=== PATIENT | female | born 1945 | race Caucasian/White ===

== ENCOUNTER → 2017-07-24 15:51 | Outpatient (REF) | payer MEDICARE, BC, SELFPAY | LOC: LAB 15:51 | PROVIDERS: Visit Provider Obstetrics & Gynecology | DX: N39.0 Urinary tract infection, site not specified (principal) | CPT/HCPCS: 87086 ==

== ENCOUNTER → 2017-08-07 13:25 | Outpatient (CLI) | payer MEDICARE, MEDICAID, SELFPAY ==
--- NOTE | 2017-08-07 13:31 | CT_ITS ---
CT abdomen pelvis wo con CLINICAL INDICATION: Recurring urinary tract infections, kidney stones, lower abdominal pain ITS.REASON: RECURRENT UTI ORDERING PHYSICIAN: Tejas Ibarra MD PATIENT AGE: 72 years COMPARISON: None TECHNIQUE: Axial images obtained with sagittal and coronal reformats. All CT scans at the facility use one or more dose reduction, viz: automated exposure control; ma/kV adjustment per patient size (including targeted exams where dose is matched to indication; i.e. head); or iterative reconstruction technique. PROCEDURE: Oral Contrast: None IV Contrast: None . FINDINGS: No acute finding in the lung bases. The liver, spleen, adrenal glands, pancreas, has an unremarkable unenhanced CT appearance. Gallbladder is slightly contracted. No radio opaque stones are evident. No hydronephrosis or stranding ureteral calculus. There is a 2 mm stone in the upper pole the left kidney. Unremarkable appendix. No intestinal obstruction or free air. No evidence of diverticulitis. Prior hysterectomy. No pelvic mass or abnormal fluid collection no acute bony anomalies. There is a tiny umbilical hernia containing fat. IMPRESSION: 1. No acute abdominal or pelvic findings. 2. Nonobstructing left renal calculus. 3. Small umbilical hernia containing
== END ==
PROVIDERS: Family Provider Internal Medicine; PCP Obstetrics & Gynecology; Visit Provider Urology
DX: N39.0 Urinary tract infection, site not specified (principal); N20.0 Calculus of kidney
CPT/HCPCS: 74176

== ENCOUNTER → 2017-10-27 10:15 | Outpatient (CLI) | payer OTHER, MEDICARE, MEDICAID, SELFPAY ==
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
== END ==
PROVIDERS: PCP Internal Medicine; Visit Provider Internal Medicine
DX: M79.645 Pain in left finger(s) (principal)
CPT/HCPCS: 73140

== ENCOUNTER → 2019-01-11 16:33 | Outpatient (CLI) | payer MEDICARE, MEDICAID, SELFPAY | PROVIDERS: Visit Provider Urology | DX: N30.20 Other chronic cystitis without hematuria (principal) | CPT/HCPCS: 87086 ==

== ENCOUNTER → 2019-09-24 08:34 | Outpatient (CLI) | payer MEDICARE, MEDICAID, SELFPAY ==
[2019-09-25 08:30] LABS: Covid-19 Nasal PCR Sendout UK NOT DETECTED
== END ==
PROVIDERS: Visit Provider Internal Medicine Gastroenterology
DX: Z03.818 Encounter for observation for suspected exposure to other biological agents ruled out (principal)
CPT/HCPCS: U0003

== ENCOUNTER 2019-09-26 08:47 | Day surgery (SDC) | payer MEDICARE, SELFPAY ==
--- NOTE | 2019-09-22 10:12 | SUR.PREOP ---
09/22/2019--PHONE CALL MADE TO PATIENT. PATIENT UNDERSTANDS THAT LAB WORK AND COVID TESTING NEEDS TO BE COMPLETED @ 0800 ON 09/24/2019. PATIENT UNDERSTANDS IF LAB WORK AND COVID-19 TESTS ARE NOT COMPLETED BY 12PM ON THAT DATE, THE SURGERY SCHEDULED WILL BE CANCELLED AND RESCHEDULED FOR ANOTHER TIME.
[2019-09-26] VITALS (8 sets, daily range): BP systolic 112–181; BP diastolic 62–77; PULSE 63–77; RESP 16–18; TEMP 36.1–36.8; O2SAT 93–98; BMI 25.9
--- NOTE | 2019-09-26 09:40 | HMH.ANESCL ---
[facility] Anesthesia Checklist - Patient Identification Patient Identification: Arm Band, Verbal (Name & ) - Structural Data Admitted From: Home Planned Operative Procedure/s: EGD Consent for Planned Operative Procedure(s) Verified: Yes Verified Documents: Surgical Consent, History and Physical - NPO Status Verified Time NPO: 00:00 - Chart Verification Results Verified: None (Serology negative for COVID-19) - Additional verifications Anesthesia Reactions: No Hx Blood Transfusions: No Blood Transfusion Reaction: No - Airway Assessment C-Spine Mobility Assessed: Yes TMJ Mobility Assessed: Yes Dentition: Poor Dentition (missing teeth) - Neurological Assessment Level of Consciousness: Awake, Alert, Appropriate, Follows Commands Hx Seizures: No Numbness or tingling in extremities: No - Anesthesia Plan Anesthesia Risk discussed: Yes Anesthesia Plan: Verified ASA Class: III Anesthesia Type: MAC [facility] History I have reviewed the patient's past medical history: Yes Medical History: Reports:: Cerebrovascular Accident (left sided weakness in hand), Gastroesophageal Reflux Disease(GERD), Hyperlipidemia, Hypertension, Kidney Stones Denies:: Cancer, Chronic Obstructive Pulmonary Disease (COPD), Diabetes Mellitus Type 1, Diabetes Mellitus Type 2, Internal Pacemaker, MRSA, Seizures *Have you ever received a pneumonia vaccine?: Yes *Have you received a flu vaccine this season?: Yes Other Medical History: Reports: Arthritis, Other. Denies: Blood Transfusion Reaction Anesthesia experience/problems:: no complications Other Surgeries: Yes: Colonoscopy, Hysterectomy-Total, Tubal Ligation, Other. No: Pacemaker Amputation: No Fractures: No - *Social History Educational Level: Completed High School Smoking Status: Never smoker # Packs/Day (cigarettes): 0 #Yrs smoked (if former smoker): 0 Alcohol Intake: never Alcohol Intake Frequency:: other Substance Use Type: denies use *Occupational Status:: retired Housing: house Household Members: children *Travel in the last 8 weeks: None Family Hx:: Hyperlipidemia, Hypertension
--- NOTE | 2019-09-26 10:00 | HMH.PROC ---
[facility] Procedure Note Procedure Note:: Upper Endoscopy Procedure Report: Esophagogastroduodenoscopy with cold biopsies Endoscopost: Rodolfo Cheatham II, MD Referring Physician: THOR Wheeler Date of Procedure: September 26, 2019 Equipment: Olympus GIF 180 standard upper endoscope Sedation: MAC sedation Indications: Mrs. Gonzalez is a 74-year-old female with epigastric abdominal pain and dyspepsia. She states that she has had this for a couple of months. She will have associated bloating, belching and early satiety. She has intermittent nausea but no vomiting. She does have chronic GERD controlled with omeprazole. The patient states that this started prior to COV and she was given Robinul which helped some. When she stopped this her symptoms recurred. The patient does have frequent diarrhea. She reports no melena, hematochezia or weight loss. She has no significant dysphagia. She does have a brother with Crohn's disease. She reports no family history of colon or stomach cancer. This is her first upper endoscopy. Her last colonoscopy was 10 years ago (Dr. Engel) and was normal. She does state that Tums will help relieve some of her symptoms. Procedure: Prior to the procedure, a history and physical exam was performed, and patient's medications and allergies were reviewed. The risks, benefits and alternatives of the sedation and procedure were discussed with the patient. All questions were answered and informed consent was obtained. The patient was brought to the procedure room. Patient identification and proposed procedure were verified by the physician and the nurse. The patient was placed in a left lateral decubitus position and the scope was passed under direct vision. Throughout the procedure, the patient's blood pressure, pulse, and oxygen saturations were monitored continuously. The upper GI endoscopy was accomplished without difficulty. The patient tolerated the procedure well. Findings: The scope was passed directly into the upper esophagus and advanced to the third portion of the duodenum. The post bulbar duodenum and duodenal bulb were normal with normal mucosa and conniventes. Cold biopsies were taken from the post bulbar duodenum to rule out celiac disease. The scope was withdrawn through a normal duodenal bulb and pylorus into the stomach. There was bile reflux with linear reactive gastropathy of the antrum and body of the stomach. The remainder of the antrum, body and fundus of the stomach were grossly normal. Upon retroflexion there was no hiatal hernia. 2 biopsies were taken in the antrum and along the lesser curvature for histology to rule out gastritis and/or H pylori. The scope was then withdrawn into the esophagus. There was no evidence of reflux esophagitis or Leger's. There was no Schatzki's ring. Biopsies were taken at the GE junction to rule out intestinal metaplasia. There were tertiary contractions and evidence of moderate esophageal dysmotility. The remainder of the esophageal mucosa was normal. Impression: 1. Nonerosive GERD with mild esophageal dysmotility 2. Bile reflux with linear reactive gastropathy Plan: I will follow-up the biopsies to rule out Leger's or H. pylori. We will discuss additional dietary measures and treatment options. I would like to obtain abdominal ultrasound and routine labs (CBC, iron levels, liver and pancreas function tests) as well. Based upon her age and symptoms, I would recommend diagnostic colonoscopy since it has been 10 years.
--- NOTE | 2019-09-26 10:36 | US_ITS ---
PROCEDURE: US ABDOMEN LIMITED CLINICAL INDICATION: GERD Epigastric pain COMPARISON: No exams were available for comparison FINDINGS: PANCREAS: Unremarkable. No obvious mass or abnormal fluid collection. No ductal dilatation LIVER: No focal liver lesions demonstrated. Homogeneous echogenicity. No intrahepatic biliary ductal dilatation evident. There is appropriate direction of blood flow within a non dilated portal vein RIGHT KIDNEY: Unremarkable. Normal size and echogenicity. No hydronephrosis GALLBLADDER: No gallstones, gallbladder wall thickening, pericholecystic fluid, or biliary dilatation. Gallbladder slightly distended IMPRESSION: Mild distention of the gallbladder otherwise negative right upper quadrant ultrasound. No gallstones apparent Dictated by: Isaiah Mathur MD 09/26/2019 16:13 Electronically signed by Isaiah Mathur MD in [place] 09/26/2019 16:13
[2019-09-26 11:02] LABS: Basophils % 0.5 % (0.1-2.0); Eosinophils # 0.1 K/mm3 (0.0-0.4); Hematocrit 37.3 % (37.0-47.0); Lymphocytes # 2.7 K/mm3 (0.7-4.5); Mean Corpuscular HGB Conc 32.3 g/dL (31.8-35.4); Mean Corpuscular Hemoglobin 30.4 pg (27.0-31.2); Mean Corpuscular Volume 94.2 fl (81-99); Mean Platelet Volume 8.7 fl (7.4-10.4); Monocytes # 0.4 K/mm3 (0.1-1.0); Monocytes % 5.4 % (1.7-9.3); Neutrophils # 3.4 K/mm3 (1.8-7.8); Neutrophils % 52.2 % (37.0-80.0); Platelet Count 237 K/mm3 (142-424); Red Blood Count 3.96 M/mm3 (4.20-5.40); Red Cell Distribution Width 13.3 % (11.5-17.5); White Blood Count 6.5 K/mm3 (4.8-10.8)
[2019-09-26 11:07] LABS: Lipase 76 U/L (23-300)
[2019-09-26 11:08] LABS: Alanine Aminotransferase 14 U/L (12-78); Alkaline Phosphatase 97 U/L (38-126); Amylase 81 U/L (30-110); Aspartate Amino Transferase 30 U/L (14-36); Bilirubin,Indirect 0.4 mg/dL (0.0-0.9); Bilirubin,Total 0.4 mg/dl (0.2-1.3); Bilirubin,Unconjugated 0.5 mg/dL (0.0-1.1); Iron 111 ug/dL (37-170); Total Protein,Serum 7.1 g/dl (6.3-8.2)
--- NOTE | 2019-09-26 11:39 | SUR.PHASEII ---
Pt had lab work drawn in Postop and was taken to Radiology when dc'd for U/S of abdomen
== END 2019-09-26 11:25 | disposition home or self-care (01) ==
PROVIDERS: PCP Nurse Practitioner Family; Visit Provider Internal Medicine Gastroenterology
PROC: 0DJ08ZZ Inspection of Upper Intestinal Tract, Via Natural or Artificial Opening Endoscopic (ICD-10-PCS; CPT 43235; principal; 2019-09-26 11:00)
DX: K30 Functional dyspepsia (principal); K21.9 Gastro-esophageal reflux disease without esophagitis; I10 Essential (primary) hypertension
CPT/HCPCS: 43239; 36415; 76705; 80076; 82150; 83540; 83690; 85025; 88305

== ENCOUNTER → 2019-10-07 09:00 | Outpatient (CLI) | payer MEDICARE, SELFPAY ==
[2019-10-07 11:04] LABS: Coronavirus 19 IgG Antibody Negative (Negative); Coronavirus 19 IgM Antibody Negative (Negative)
== END ==
PROVIDERS: Visit Provider Internal Medicine Gastroenterology
DX: Z01.818 Encounter for other preprocedural examination (principal); Z12.11 Encounter for screening for malignant neoplasm of colon
CPT/HCPCS: 36415; 86328

== ENCOUNTER 2019-10-10 10:16 | Day surgery (SDC) | payer MEDICARE, SELFPAY ==
--- NOTE | 2019-10-06 10:33 | SUR.PREOP ---
10/06/2019 @ 1030--PHONE CALL MADE TO PATIENT. PATIENT UNDERSTANDS THAT LAB WORK AND COVID TESTING NEEDS TO BE COMPLETED @ 0845 ON 10/07/2019. PATIENT UNDERSTANDS IF LAB WORK AND COVID-19 TESTS ARE NOT COMPLETED BY 12PM ON THAT DATE, THE SURGERY SCHEDULED WILL BE CANCELLED AND RESCHEDULED FOR ANOTHER TIME.
[2019-10-06 14:03] VITALS: BMI 25.9
[2019-10-10 10:35] VITALS: BMI 25.9
[2019-10-10 10:48] VITALS: BP 127/91; PULSE 81; RESP 18; TEMP 36.4; O2SAT 97
[2019-10-10 11:18] VITALS: O2SAT 98
--- NOTE | 2019-10-10 11:30 | HMH.ANESCL ---
[facility] Anesthesia Checklist - Patient Identification Patient Identification: Arm Band, Verbal (Name & ) - Structural Data Admitted From: Home Planned Operative Procedure/s: Colonoscopy Consent for Planned Operative Procedure(s) Verified: Yes Verified Documents: Surgical Consent, History and Physical - NPO Status Verified Time NPO: 00:00 - Chart Verification Results Verified: CBC, BMP - Additional verifications Anesthesia Reactions: No Hx Blood Transfusions: No Blood Transfusion Reaction: No - Airway Assessment C-Spine Mobility Assessed: Yes TMJ Mobility Assessed: Yes Dentition: Poor Dentition - Neurological Assessment Level of Consciousness: Awake, Alert, Appropriate, Follows Commands Hx Seizures: No Numbness or tingling in extremities: No - Anesthesia Plan Anesthesia Risk discussed: Yes Anesthesia Plan: Verified ASA Class: III Anesthesia Type: MAC [facility] History I have reviewed the patient's past medical history: Yes Medical History: Reports:: Cerebrovascular Accident (left sided weakness in hand), Deep Vein Thrombosis, Gastroesophageal Reflux Disease(GERD), Hyperlipidemia, Hypertension, Kidney Stones Denies:: Cancer, Chronic Obstructive Pulmonary Disease (COPD), Diabetes Mellitus Type 1, Diabetes Mellitus Type 2, Internal Pacemaker, MRSA, Seizures *Have you ever received a pneumonia vaccine?: Yes *Have you received a flu vaccine this season?: Yes Other Medical History: Reports: Arthritis, Other. Denies: Blood Transfusion Reaction Anesthesia experience/problems:: PONV Laterality Cases: Bilateral: Cataract Other Surgeries: Yes: Colonoscopy, Hysterectomy-Total, Tubal Ligation, Other. No: Pacemaker Amputation: No Fractures: No - *Social History Smoking Status: Never smoker # Packs/Day (cigarettes): 0 #Yrs smoked (if former smoker): 0 Alcohol Intake: never Alcohol Intake Frequency:: other Substance Use Type: denies use *Occupational Status:: retired Housing: house Household Members: family *Travel in the last 8 weeks: None Family Hx:: Cancer, Diabetes, Heart Attack
[2019-10-10 11:53] VITALS: BP 86/52; PULSE 73; RESP 18; TEMP 36.1; O2SAT 96
--- NOTE | 2019-10-10 11:53 | HMH.PROC ---
[facility] Procedure Note Procedure Note:: Colonoscopy Procedure Report: Colonoscopy with cold snare polypectomy Endoscopist: Rodolfo Cheathma II, MD Referring physician: THOR Huynh Date of Procedure: October 10, 2019 Equipment: Olympus 180 variable stiffness pediatric colonoscope Sedation: MAC sedation Indication: Mrs. Gonzalez is a 74-year-old female who is here for follow-up screening/surveillance colonoscopy. Her last colonoscopy was 10 years ago and was normal. The patient recently has had dyspepsia with bloating, fullness and epigastric abdominal pain. The patient had an EGD with me on September 26, 2019 and had bile reflux with reactive gastropathy. The patient is much clinically improved with dietary measures and probiotic (align). Her ultrasound of the abdomen was normal. She did have some borderline anemia. The patient reports no rectal bleeding, change in bowel habits, weight loss or family history of colon cancer. Procedure: Prior to the procedure, a history and physical exam was performed, and patient's medications and allergies were reviewed. The risks, benefits and alternatives of the sedation and procedure were discussed with the patient. All questions were answered and informed consent was obtained. The patient was brought to the procedure room. Patient identification and proposed procedure were verified by the physician and the nurse. The patient was placed in a left lateral decubitus position and the scope was passed under direct vision. Throughout the procedure, the patient's blood pressure, pulse, and oxygen saturations were monitored continuously. The colonoscopy was accomplished without difficulty. The patient tolerated the procedure well. Findings: On digital rectal examination there was normal rectal tone. There were no external hemorrhoids. The colonoscope was introduced through the anal canal to the rectum and advanced to the cecum. The ileocecal valve and appendiceal orifice were identified. The scope was advanced a short distance into the ileum which appeared grossly normal. The scope was then withdrawn into the colon. There was a diminutive 3 mm polyp in the cecum and a second diminutive 3 mm polyp in the descending colon. Both of these were removed via cold snare polypectomy. There were mildly scattered diverticuli throughout the descending and sigmoid colon (LEFT colon). The rectum itself was normal. Upon retroflexion within the rectum there were grade 1 internal hemorrhoids. The preparation was excellent throughout with [place] Preparation Score of 9. The cecal time was 12 minutes. Impression: 1. Diminutive colonic polyps x2 2. Mild left-sided diverticulosis 3. Grade 1 internal hemorrhoids Plan: I am not convinced that the patient will require any further preventive/screening colonoscopy based upon colonoscopic findings. I would encourage bulk fiber supplementation on a long-term daily maintenance basis.
[2019-10-10 12:03] VITALS: BP 99/61; PULSE 66; RESP 18; O2SAT 95
[2019-10-10 12:13] VITALS: BP 122/73; PULSE 75; RESP 18; O2SAT 98
[2019-10-10 12:43] VITALS: BP 146/57; PULSE 76; RESP 18; O2SAT 98
== END 2019-10-10 12:51 | disposition home or self-care (01) ==
LOC: OUTP 10:18
PROVIDERS: PCP Nurse Practitioner; Visit Provider Internal Medicine Gastroenterology
PROC: 0DJD8ZZ Inspection of Lower Intestinal Tract, Via Natural or Artificial Opening Endoscopic (ICD-10-PCS; CPT 45378; principal; 2019-10-10 11:30)
DX: Z12.11 Encounter for screening for malignant neoplasm of colon (principal); K63.5 Polyp of colon; K57.30 Diverticulosis of large intestine without perforation or abscess without bleeding; K64.0 First degree hemorrhoids; I63.9 Cerebral infarction, unspecified; R53.1 Weakness; I10 Essential (primary) hypertension; E78.5 Hyperlipidemia, unspecified; Z87.442 Personal history of urinary calculi; I82.409 Acute embolism and thrombosis of unspecified deep veins of unspecified lower extremity; K21.9 Gastro-esophageal reflux disease without esophagitis
CPT/HCPCS: 45385; 88305

== ENCOUNTER → 2019-11-08 08:12 | Outpatient (CLI) | payer MEDICARE, SELFPAY | PROVIDERS: Visit Provider Nurse Practitioner Family | DX: R19.7 Diarrhea, unspecified (principal) | CPT/HCPCS: 87045; 87205; 87493 ==

== ENCOUNTER → 2021-01-03 07:48 | Outpatient (CLI) | payer MEDICARE, MEDICAID, SELFPAY ==
--- NOTE | 2021-01-03 07:52 | US_ITS ---
PROCEDURE: US ABDOMEN LIMITED CLINICAL INDICATION: UPPER ABD PAIN COMPARISON: US US ABDOMEN LIMITED from 09/26/2019 FINDINGS: PANCREAS: Unremarkable. No obvious mass or abnormal fluid collection. No ductal dilatation LIVER: No focal liver lesions demonstrated. Homogeneous echogenicity. No intrahepatic biliary ductal dilatation evident. There is appropriate direction of blood flow within a non dilated portal vein RIGHT KIDNEY: There is a 17 x 16 mm right renal cyst GALLBLADDER: No gallstones, gallbladder wall thickening, pericholecystic fluid, or biliary dilatation. IMPRESSION: Small right renal cyst otherwise negative right upper quadrant ultrasound Dictated by: Isaiah Mathur MD 01/03/2021 10:54 Isaiah Mathur MD in [facility] 01/03/2021 10:54
--- NOTE | 2021-01-03 07:52 | CT_ITS ---
PROCEDURE: CT SINUS WO CON CLINICAL HISTORY: RECURRERNT SINUSITIS,H/O SINUS SURGERY COMPARISON: No exams were available for comparison TECHNIQUE: Axial images obtained with sagittal and coronal reformats. All CT scans at the facility use one or more dose reduction, viz: automated exposure control, ma/kV adjustment per patient size (including targeted exams where dose is matched to indication, i.e. head), or iterative reconstruction technique. FINDINGS: Mild mucosal thickening is present in the right ethmoid sinus. There is an opacified posterior ethmoid air cell on the left. The sphenoid sinus and frontal sinus has an unremarkable appearance. Frontal sinus is hypoplastic. There are bilateral retention cysts within the maxillary sinuses mainly in the floor of the maxillary sinuses left greater than right measuring up to 13 mm on the left. The ostiomeatal complexes are patent. Small retention cyst is present in the left maxillary sinus medially just posterior to the ostiomeatal unit. This measures 5 mm. There has been bilateral antrostomies which are posterior to the ostiomeatal complexes. No sinus air-fluid level evident. No significant nasal septal deviation. Mild osteoarthritic changes involves the left TMJ. IMPRESSION: Postsurgical changes with bilateral maxillary antrostomies with bilateral maxillary retention cysts mild mucosal thickening of the right ethmoid sinus and an opacified left ethmoid air cell posteriorly. No air-fluid levels. Mild left TMJ arthropathy Dictated by: Isaiah Mathur MD 01/03/2021 10:52 Isaiah Mathur MD in [facility] 01/03/2021 10:52
== END ==
PROVIDERS: PCP Nurse Practitioner Family; Visit Provider Nurse Practitioner Family
DX: J32.9 Chronic sinusitis, unspecified (principal); R10.10 Upper abdominal pain, unspecified
CPT/HCPCS: 70486; 76705

== ENCOUNTER → 2021-09-10 13:52 | Outpatient (CLI) | payer MEDICARE, SELFPAY | PROVIDERS: PCP Nurse Practitioner Family; Visit Provider Nurse Practitioner Family | DX: G47.33 Obstructive sleep apnea (adult) (pediatric) (principal); I63.9 Cerebral infarction, unspecified; G25.81 Restless legs syndrome | CPT/HCPCS: G0399 ==

== ENCOUNTER → 2021-09-26 09:05 | Outpatient (CLI) | payer MEDICARE, SELFPAY ==
--- NOTE | 2021-09-26 09:14 | XR_ITS ---
FINAL REPORT CLINICAL HISTORY: LOW BACK PAIN,S/P FALL FINDINGS: 5 views of the lumbar spine were obtained. There is no evidence of fracture or dislocation. The vertebral alignment is normal. There is rightward curvature. There are mild degenerative changes with osteophytes. No paraspinous soft tissue abnormalities identified. IMPRESSION: No acute bony abnormality. Reviewed, Interpreted and Dictated by Alonso Waters III, MD Transcribed by Kyle Forde Authenticated by Alonso Waters III, MD on 09/26/2021 10:17:[address] [facility]
--- NOTE | 2021-09-26 09:14 | XR_ITS ---
FINAL REPORT CLINICAL HISTORY: LT RIB PAIN,S/P FALL FINDINGS: 3 views of the left ribs were obtained. There are nondisplaced fractures of the left lateral 4th and 5th ribs. There is no pleural fluid collection or pneumothorax. A single view of the chest demonstrates no acute cardiopulmonary process. IMPRESSION: Left lateral 4th and 5th rib fractures without pneumothorax. Reviewed, Interpreted and Dictated by Alonso Waters III, MD Transcribed by Kyle Forde Authenticated by Alonso Waters III, MD on 09/26/2021 10:17:42 AM [facility]
== END ==
PROVIDERS: PCP Nurse Practitioner Family; Visit Provider Nurse Practitioner Family
DX: R07.81 Pleurodynia (principal); M54.50 Low back pain, unspecified; Z91.81 History of falling
CPT/HCPCS: 71101; 72110

== ENCOUNTER → 2021-11-21 09:16 | Outpatient (CLI) | payer MEDICARE, SELFPAY | PROVIDERS: PCP Nurse Practitioner Family; Visit Provider Nurse Practitioner Family | DX: U07.1 COVID-19 (principal); R05.1 Acute cough; R19.7 Diarrhea, unspecified | CPT/HCPCS: C9803; U0003; U0005 ==

== ENCOUNTER → 2022-09-15 08:36 | Outpatient (CLI) | payer MEDICARE, MEDICAID, SELFPAY ==
--- NOTE | 2022-09-15 08:48 | XR_ITS ---
FINAL REPORT CLINICAL HISTORY: RT SIDED THORACIC BACK PAIN FINDINGS: THORACIC SPINE SERIES. AP and lateral views were obtained. There is no acute fracture. Mild S-shaped scoliosis. There is no malalignment. Mild diffuse degenerative disc disease. IMPRESSION: Mild diffuse degenerative disc disease. Reviewed, Interpreted and Dictated by Cecile Pina MD Transcribed by Kyle Forde Authenticated and [facility]
--- NOTE | 2022-09-15 08:48 | XR_ITS ---
FINAL REPORT CLINICAL HISTORY: RT SIDE RIB PAIN FINDINGS: 3 views of the right ribs were obtained. There are no rib fractures. There is no pleural fluid collection or pneumothorax. A single view of the chest demonstrates no acute cardiopulmonary process. IMPRESSION: Unremarkable right rib series. Reviewed, Interpreted and Dictated by Cecile Pina MD Transcribed by Kyle Forde Authenticated and . [facility]
== END ==
PROVIDERS: PCP Nurse Practitioner Family; Visit Provider Nurse Practitioner Family
DX: M54.6 Pain in thoracic spine (principal); R07.81 Pleurodynia
CPT/HCPCS: 71101; 72072

== ENCOUNTER → 2023-01-22 15:46 | Outpatient (CLI) | payer MEDICARE, MEDICAID, SELFPAY | PROVIDERS: PCP Internal Medicine; Visit Provider Internal Medicine | DX: N39.0 Urinary tract infection, site not specified (principal); B96.29 Other Escherichia coli [E. coli] as the cause of diseases classified elsewhere | CPT/HCPCS: 87086; 87088; 87186 ==

== ENCOUNTER → 2023-04-01 15:53 | Outpatient (CLI) | payer MEDICARE, MEDICAID, SELFPAY | PROVIDERS: PCP Nurse Practitioner Family; Visit Provider Nurse Practitioner Family | DX: N39.0 Urinary tract infection, site not specified (principal); B96.89 Other specified bacterial agents as the cause of diseases classified elsewhere | CPT/HCPCS: 87086 ==

== ENCOUNTER → 2023-04-29 13:51 | Outpatient (CLI) | payer MEDICARE, MEDICAID, SELFPAY ==
[2023-04-29 14:40] LABS: Basophils % 0.4 % (0.1-2.0); Eosinophils # 0.2 K/mm3 (0.0-0.4); Eosinophils % 1.9 % (0.1-12.0); Hematocrit 43.7 % (37.0-47.0); Hemoglobin 14.3 g/dL (12.2-16.2); Lymphocytes # 4.1 K/mm3 (0.7-4.5); Lymphocytes % 54.1 % (10-50); Mean Corpuscular HGB Conc 32.8 g/dL (31.8-35.4); Mean Corpuscular Hemoglobin 31.9 pg (27.0-31.2); Mean Corpuscular Volume 97.4 fl (81-99); Monocytes # 0.3 K/mm3 (0.1-1.0); Monocytes % 4.1 % (1.7-9.3); Neutrophils % 39.5 % (37.0-80.0); Platelet Count 249 K/mm3 (142-424); Red Blood Count 4.49 M/mm3 (4.20-5.40); Red Cell Distribution Width 12.6 % (11.5-17.5); White Blood Count 7.5 K/mm3 (4.8-10.8)
[2023-04-29 14:50] LABS: MANUAL DIFFERENTIAL MANUAL DIFFERENTIAL (MANUAL DIFF)
[2023-04-29 15:23] LABS: Alanine Aminotransferase 20 U/L (12-78); Albumin Level 4.6 g/dl (3.5-5.0); Albumin/Globulin Ratio 1.4 (1.1-1.8); Alkaline Phosphatase 111 U/L (38-126); Anion Gap 10.7 mEq/L (5-15); Aspartate Amino Transferase 35 U/L (14-36); Bilirubin,Total 0.5 mg/dl (0.2-1.3); Blood Urea Nitrogen 14 mg/dl (7-17); Calcium 9.1 mg/dl (8.4-10.2); Carbon Dioxide 27 mmol/L (22.0-30.0); Chloride 105 mmol/L (98-107); Chol/HDL Ratio 3.2 (1-3.5); Cholesterol 210 mg/dl (140-200); Estimated Glomerular Filt Rate 69 ml/min (>60); GFR (African American) 84 ML/MIN (>60); Globulin 3.3 g/dL (1.3-3.2); Glucose 88 mg/dl (74-100); HDL Cholesterol 66 mg/dl (40-60); Potassium 4.7 mmoL/L (3.5-5.1); Sodium 138 mmol/L (136-145); Total Protein,Serum 7.9 g/dl (6.3-8.2); Triglycerides 122 mg/dl (30-150); VLDL Cholesterol 24 mg/dL (0-40)
[2023-04-29 15:34] LABS: Direct LDL Cholesterol 110.13 mg/dL (100-129)
[2023-04-29 15:35] LABS: Eosinophils % 2 % (0-3); Lymphocytes % 51 % (10-50); Monocytes % 4 % (2-9); Neutrophils % 43 % (42-76); Platelet Estimate Normal; RBC Morphology Normal; Total Cells Counted 100
[2023-04-29 15:53] LABS: Thyroid Stimulating Hormone 0.13 uIU/mL (0.465-4.68)
[2023-04-30 15:39] LABS: Free T4 (Free Thyroxine) 1.34 ng/dl (0.78-2.19)
[2023-05-02 16:01] LABS: Triiodothyronine (T3) Total 104 ng/dL (71-180)
[2023-05-06 07:16] LABS: Thyroid Stimulating Immunoglob <0.10 IU/L (0.00-0.55)
== END ==
LOC: LAB.DROPOF 13:52
PROVIDERS: Internal Medicine; PCP Nurse Practitioner Family; Visit Provider Nurse Practitioner Family
DX: N30.00 Acute cystitis without hematuria (principal); I10 Essential (primary) hypertension; Z79.899 Other long term (current) drug therapy
CPT/HCPCS: 80053; 80061; 84439; 84443; 84445; 84480; 85007; 85025

== ENCOUNTER → 2023-04-30 13:31 | Outpatient (CLI) | payer MEDICARE, MEDICAID, SELFPAY | PROVIDERS: PCP Internal Medicine; Visit Provider Internal Medicine | DX: E05.90 Thyrotoxicosis, unspecified without thyrotoxic crisis or storm (principal) | CPT/HCPCS: 84439; 84445; 84480 ==

== ENCOUNTER 2023-07-14 17:43 | Outpatient (CLI) | payer MEDICARE, MEDICAID, SELFPAY ==
[2023-07-14 17:46] LABS: Free T4 (Free Thyroxine) 1.14 ng/dl (0.78-2.19)
[2023-07-14 18:00] LABS: Thyroid Stimulating Hormone 0.17 uIU/mL (0.465-4.68)
[2023-07-16 09:29] LABS: Triiodothyronine (T3) Free 2.8 pg/mL (2.0-4.4)
== END 2023-07-14 23:59 ==
LOC: LAB.DROPOF 17:43
PROVIDERS: PCP Nurse Practitioner Family; Visit Provider Nurse Practitioner Family
DX: E05.90 Thyrotoxicosis, unspecified without thyrotoxic crisis or storm (principal)
CPT/HCPCS: 84439; 84443; 84481

== ENCOUNTER 2023-09-03 14:08 | Emergency (ER) | payer MEDICARE, MEDICAID, SELFPAY ==
[2023-09-03 14:27] LABS: Apearance,Urine Clear (Clear); Color,Urine Orange (Yellow); PH,Urine 5.5 (5.0-8.5)
[2023-09-03 14:28] LABS: Bilirubin,Urine Negative (Negative); Blood, Urine Trace (Negative); Glucose,Urine (UA) Negative (Negative); Ketones,Urine Negative (Negative); Protein,Urine Negative (Negative); UTC Leukocyte Esterase,Urine 3+ (Negative); UTC Nitrate,Urine Positive (Negative); Urobilinogen,Urine 0.2 EU/dl (0.2)
[2023-09-03 14:30] VITALS: BP 195/75; PULSE 88; RESP 18; TEMP 36.8; O2SAT 95; BMI 26.6
--- NOTE | 2023-09-03 14:40 | EXP.UTC ---
Discharge Plan Disposition Patient Disposition: Home, Self-Care Condition: Good Prescriptions Prescriptions: New phenazopyridine [Pyridium] 200 mg tablet 200 mg PO Q8H 2 Days Qty: 6 0RF nitrofurantoin monohyd/m-cryst [Macrobid] 100 mg Capsule 100 mg PO BID Qty: 10 0RF Rx Instructions: must administer with a meal/food No Action simvastatin 20 mg tablet 20 mg PO DAILY aspirin [Adult Aspirin Regimen] 81 mg tablet,delayed release (DR/EC) 81 mg PO DAILY levocetirizine 5 mg tablet 2.5 mg PO Q OTHER DAY metoprolol succinate 25 mg tablet extended release 24 hr 25 mg PO DAILY fexofenadine 180 mg tablet 180 mg PO DAILY 90 Days Qty: 90 1RF omeprazole 40 mg capsule,delayed release(DR/EC) 40 mg PO DAILY 90 Days Qty: 90 1RF losartan 100 mg tablet 100 mg PO DAILY 90 Days Qty: 90 3RF ropinirole 0.5 mg tablet 0.5 mg PO HS 90 Days Qty: 90 3RF dicyclomine 10 mg capsule 10 mg PO BID PRN (Reason: diarrhea) Qty: 60 2RF Referrals Follow up/Referrals: Kanchan Hernandez APRN [Primary Care Provider] - See instructions Activity Restrictions/Add. Instructions Additional Instructions/Restrictions: Drink plenty of fluids. Take tylenol or ibuprofen for pain or fever. Take the medications as directed. Follow up with your regular doctor. GO TO THE ER FOR ANY WORSENING SYMPTOMS The pyridium will make your urine turn orange, this is an expected side effect. It will stain your clothes if it comes into contact with them. We will culture the urine. That will tell what bacteria is causing your infection and which antibiotics will treat it best. Sometimes the first antibiotic we prescribe turns out to not work against different bacteria. So, make sure you follow up within 3 days if you are not getting better. Clinical Impressions Clinical Impression: UTI (urinary tract infection) Instructions Patient Instructions: Urinary Tract Infection, Urine Culture, DI for Urinary Tract Infection (UTI), Phenazopyridine Discharge ED Provider: Navneet De Paz [facility] [place] HPI General Stated complaint: pain while going to bathroom, chills Mode of Arrival: Ambulatory Source of Information: Patient Limitations: No Limitations Time Seen by Provider: 09/03/23 14:40 Description of Symptoms (Recalled from Triage Doc. by RN): Pt's symptoms are burning, and pressure. HEENT Symptoms (Recalled from RN notes): Yes Resp Symptoms (Recalled from RN notes): No Skin Symptoms (Recalled from RN notes): No MS Symptoms (Recalled from RN notes): No Functional Status (Recalled from RN notes): n/a History of Present Illness Provider Complaint: She states that for the past 1 day she has had low back pain, dysuria, and urinary frequency. Related Data Home Medications Medication Instructions Recorded Confirmed simvastatin 20 mg tablet 20 mg PO DAILY 01/22/23 07/14/23 aspirin 81 mg tablet,delayed 81 mg PO DAILY Blood thinner 04/01/23 07/14/23 release (Adult Aspirin Regimen) levocetirizine 5 mg tablet 2.5 mg PO Q OTHER DAY 07/14/23 07/14/23 metoprolol succinate 25 mg 25 mg PO DAILY 07/14/23 07/14/23 tablet,extended release 24 hr Previous Rx's Medication Instructions Recorded omeprazole 40 mg capsule,delayed 40 mg PO DAILY 90 days #90 caps 04/22/23 release losartan 100 mg tablet 100 mg PO DAILY bp 90 days #90 tabs 05/22/23 ropinirole 0.5 mg tablet 0.5 mg PO HS rls 90 days #90 tabs 06/03/23 fexofenadine 180 mg tablet 180 mg PO DAILY 90 days #90 tabs 07/14/23 dicyclomine 10 mg capsule 10 mg PO BID PRN diarrhea #60 caps 07/31/23 nitrofurantoin 100 mg PO BID #10 caps 09/03/23 monohydrate/macrocrystals 100 mg capsule (Macrobid) phenazopyridine 200 mg tablet 200 mg PO Q8H 2 days #6 tabs 09/03/23 (Pyridium) Allergies Allergy/AdvReac Type Severity Reaction Status Date / Time No Known Allergies Allergy Verified 09/03/23 14:39 Worker's Comp Is this a Worker's Comp case?: No [facility] Disclaimer: The information contained in this section may have been updated after the patient was seen, as this information can be updated by other users. Medical History CVA (cerebral vascular accident) Surgical History History of right oophorectomy Hx of hysterectomy Hx of tubal ligation Family History Other Cancer Coronary artery disease Heart attack Hypertension Social History Smoking Status: Never smoker second hand exposure: No alcohol intake: never substance use type: denies use current occupational status: retired Travel in the last 8 weeks: None household members: family housing: house caffeine: No ROS Obtained: Yes All systems reviewed & no additional complaints except as documented Constitutional Constitutional: Reports system reviewed and no additional complaints, except as documented, Denies chills and Denies fever(s) Eyes Eyes: Denies eye discharge ENT Ears, Nose, Mouth, and Throat: Denies dysphagia, Denies sore throat and Denies throat swelling Cardiovascular Cardiovascular: Denies chest pain and Denies dyspnea Respiratory Respiratory: Denies chest congestion, Denies cough and Denies dyspnea Gastrointestinal Gastrointestingal: Denies abdominal pain, constipation, diarrhea, dysphagia, nausea or vomiting Genitourinary Female Genitourinary: Reports as per HPI, Reports dysuria, Reports urinary frequency, Denies urinary incontinence, Reports urinary hesitancy and Reports urinary urgency Musculoskeletal Musculoskeletal: Denies arthralgias and Reports back pain Integumentary/Breasts Skin/Breast: Denies rash Neurologic Neurologic: Denies paresthesias Allergic/Immunologic Allergic/Immunologic: Denies throat swelling Physical Exam General General appearance: alert and in no apparent distress Head Head exam: atraumatic and normocephalic Eye Eye exam: Present normal appearance, PERRL and EOMI ENT ENT exam: Present normal exam, mucous membranes moist, TM's normal bilaterally and normal external ear exam Neck Neck exam: Present normal inspection, full ROM and trachea midline; Absent tenderness, meningismus or lymphadenopathy Chest Chest inspection: Present normal inspection and symmetric chest wall rise; Absent tenderness Respiratory Respiratory exam: Present normal lung sounds bilaterally; Absent respiratory distress, wheezes or stridor Cardiovascular Cardiovascular exam: Present regular rate, normal rhythm and normal heart sounds Abdominal Exam Abdominal exam: Present soft and normal bowel sounds; Absent distention, tenderness, guarding, rebound, rigidity, incision, psoas sign, obturator sign, heel tap sign, Verdugo's sign, Rovsing's sign or tenderness at McBurney's Point Extremities Exam Extremities exam: Present normal inspection, full ROM and normal capillary refill; Absent tenderness, edema, joint swelling, calf tenderness or cyanosis Back Exam Back exam: Present normal inspection and full ROM; Absent tenderness, CVA tenderness (R) or CVA tenderness (L) Neurological Exam Neurological exam: Present alert, oriented X3 and normal gait Psychiatric Psychiatric exam: Present normal affect and normal mood Skin Skin exam: Present warm, dry, intact and normal color Lymphatic Lymphatic Findings: no adenopathy Medical Decision Making Medical Records Medical records reviewed: No I reviewed the patient's medical records. [place] Inquiry Pt receiving controlled substance: No Vital Signs: 09/03/23 14:30 Temperature 98.2 F Temperature Source Oral Pulse Rate [Right Radial] 88 Respiratory Rate 18 Blood Pressure [Right Arm] 195/75 H Blood Pressure Mean [Right Arm] 115 Blood Pressure Source [Right Arm] Automatic Cuff Blood Pressure Position [Right Arm] Sitting 02 Sat by Pulse Oximetry 95 Oxygen Delivery Method Room Air Lab Data Lab results reviewed: Yes I reviewed the patient's lab results. Lab Results 09/03/23 14:27: Urine Color [place], Urine Appearance Clear, Urine pH 5.5, Ur Specific [place] 1.010, Urine Protein Negative, Urine Glucose (UA) Negative, Urine Ketones Negative, Urine Blood Trace, Urine Nitrate Positive A, Urine Bilirubin Negative, Urine Urobilinogen 0.2, Ur Leukocyte Esterase 3+ A Orders (Tests/Meds): ORDERS Category Date Time Status Urine Culture Stat Micro 09/03/23 14:27 Ordered
[2023-09-03 15:04] VITALS: BP 195/75; PULSE 88; RESP 18; TEMP 36.8; O2SAT 95
== END 2023-09-03 15:04 | disposition home or self-care (01) ==
PROVIDERS: Emergency Provider Nurse Practitioner Family; PCP Nurse Practitioner Family
DX: N39.0 Urinary tract infection, site not specified (principal); B96.29 Other Escherichia coli [E. coli] as the cause of diseases classified elsewhere; M54.59 Other low back pain
CPT/HCPCS: 81003; 87086; 99204; 99212; G0463

== ENCOUNTER 2023-09-09 11:31 | Outpatient (CLI) | payer MEDICARE, MEDICAID, SELFPAY | END 2023-09-09 23:59 | disposition home or self-care (01) | LOC: LAB.DROPOF 09-10 11:32 | PROVIDERS: PCP Nurse Practitioner Family; Visit Provider Nurse Practitioner Family | DX: N39.0 Urinary tract infection, site not specified (principal); R10.2 Pelvic and perineal pain; R30.0 Dysuria; B96.89 Other specified bacterial agents as the cause of diseases classified elsewhere | CPT/HCPCS: 87086 ==

== ENCOUNTER 2023-10-08 11:45 | Outpatient (CLI) | payer MEDICARE, MEDICAID, SELFPAY | END 2023-10-08 23:59 | disposition home or self-care (01) | LOC: LAB.DROPOF 11:45 | PROVIDERS: PCP Nurse Practitioner Family; Visit Provider Nurse Practitioner Family | DX: R30.0 Dysuria (principal); B96.29 Other Escherichia coli [E. coli] as the cause of diseases classified elsewhere | CPT/HCPCS: 87086; 87088; 87186 ==

== ENCOUNTER 2024-03-01 15:18 | Outpatient (CLI) | payer MEDICARE, MEDICAID, SELFPAY ==
[2024-03-01 14:42] LABS: Basophils # 0.1 K/mm3 (0-0.2); Basophils % 0.6 % (0.1-2.0); Eosinophils # 0.2 K/mm3 (0.0-0.4); Eosinophils % 1.7 % (0.1-12.0); Hematocrit 45.2 % (37.0-47.0); Hemoglobin 14.8 g/dL (12.2-16.2); Lymphocytes # 3.5 K/mm3 (0.7-4.5); Lymphocytes % 38.5 % (10-50); Mean Corpuscular HGB Conc 32.7 g/dL (31.8-35.4); Mean Corpuscular Hemoglobin 31.6 pg (27.0-31.2); Mean Corpuscular Volume 96.7 fl (81-99); Mean Platelet Volume 9.5 fl (7.4-10.4); Monocytes # 0.5 K/mm3 (0.1-1.0); Monocytes % 5.2 % (1.7-9.3); Neutrophils # 4.9 K/mm3 (1.8-7.8); Neutrophils % 54.1 % (37.0-80.0); Platelet Count 262 K/mm3 (142-424); Red Blood Count 4.68 M/mm3 (4.20-5.40); Red Cell Distribution Width 12.8 % (11.5-17.5)
[2024-03-01 15:48] LABS: Alanine Aminotransferase 21 U/L (12-78); Albumin Level 4.7 g/dl (3.5-5.0); Albumin/Globulin Ratio 1.5 (1.1-1.8); Alkaline Phosphatase 105 U/L (38-126); Anion Gap 11.8 mEq/L (5-15); Aspartate Amino Transferase 38 U/L (14-36); Bilirubin,Total 0.6 mg/dl (0.2-1.3); Blood Urea Nitrogen 18 mg/dl (7-17); Calcium 9.7 mg/dl (8.4-10.2); Carbon Dioxide 29 mmol/L (22.0-30.0); Chloride 104 mmol/L (98-107); Chol/HDL Ratio 2.9 (1-3.5); Cholesterol 221 mg/dl (140-200); Estimated Glomerular Filt Rate 81 ml/min (>60); GFR (African American) 98 ML/MIN (>60); Globulin 3.2 g/dL (1.3-3.2); Glucose 83 mg/dl (74-100); HDL Cholesterol 75 mg/dl (40-60); Potassium 4.8 mmoL/L (3.5-5.1); Sodium 140 mmol/L (136-145); Total Protein,Serum 7.9 g/dl (6.3-8.2); Triglycerides 120 mg/dl (30-150); VLDL Cholesterol 24 mg/dL (0-40)
[2024-03-01 15:59] LABS: Direct LDL Cholesterol 110.73 mg/dL (100-129)
[2024-03-01 16:19] LABS: Thyroid Stimulating Hormone 2.51 uIU/mL (0.465-4.68)
[2024-03-01 16:38] LABS: Vitamin B12 973 pg/mL (239-931)
== END 2024-03-01 23:59 | disposition home or self-care (01) ==
LOC: LAB.DROPOF 15:19
PROVIDERS: PCP Nurse Practitioner Family; Visit Provider Nurse Practitioner Family
DX: I10 Essential (primary) hypertension (principal); E05.90 Thyrotoxicosis, unspecified without thyrotoxic crisis or storm; D64.9 Anemia, unspecified; R79.89 Other specified abnormal findings of blood chemistry
CPT/HCPCS: 80053; 80061; 82607; 83735; 84443; 85025

== ENCOUNTER 2024-03-18 10:46 | Outpatient (CLI) | payer MEDICARE, MEDICAID, SELFPAY ==
--- NOTE | 2024-03-18 10:52 | US_ITS ---
FINAL REPORT CLINICAL HISTORY: CLAUDICATION,REST PAIN ,HAIR LOSS,HTN,HLD, FINDINGS: Ankle-brachial indices was obtained. The right ALLEY is 1.1. The left ALLEY is 1.1. IMPRESSION: ABIs are within normal limits bilaterally. Reviewed, Interpreted and Dictated by Alonso Waters III, MD Transcribed by Suzan Yeh Authenticated and . [facility]
== END 2024-03-18 23:59 | disposition home or self-care (01) ==
LOC: RT 10:48
PROVIDERS: PCP Nurse Practitioner Family; Visit Provider Nurse Practitioner Family
DX: I73.9 Peripheral vascular disease, unspecified (principal)
CPT/HCPCS: 93923

== ENCOUNTER 2024-03-31 08:47 | Outpatient (CLI) | payer MEDICARE, MEDICAID, SELFPAY ==
--- NOTE | 2024-03-31 08:48 | XR_ITS ---
FINAL REPORT CLINICAL HISTORY: Screening for osteoporosis COMPARISON: None FINDINGS: Using L1-4, the bone mineral density of the spine is 0.762 g/cm2, corresponding to T-score of -2.6, consistent with osteoporosis. Using the left hip, the bone mineral density of the femoral neck is 0.547 g/cm2, corresponding to a T-score of -2.7, consistent with osteoporosis. Using the right hip, the bone mineral density of the femoral neck is 0.534 g/cm2, corresponding to a T-score of -2.8, consistent with osteoporosis. FRAX not reported because some T score at or below -2.5. NOTE: T-score: Standard deviation compared with peak bone mass of young adult mean. *Following the recommendations of the International Society of Bone densitometry, classification of hip BMD is based on the lower of two T-scores; total hip or femoral neck. IMPRESSION: Diminished bone mineral density consistent with osteoporosis. Reviewed, Interpreted and Dictated by Ward Hooks MD Transcribed by Chantel Ruiz Authenticated and [facility]
== END 2024-03-31 23:59 | disposition home or self-care (01) ==
LOC: RAD 08:48
PROVIDERS: PCP Nurse Practitioner Family; Visit Provider Nurse Practitioner Family
DX: M85.88 Other specified disorders of bone density and structure, other site (principal); Z13.820 Encounter for screening for osteoporosis
CPT/HCPCS: 77080

== ENCOUNTER 2024-04-25 13:41 | Outpatient (CLI) | payer MEDICARE, MEDICAID, SELFPAY ==
[2024-04-25 13:56] VITALS: BP 162/75; PULSE 78; RESP 16; TEMP 36.4; O2SAT 97
[2024-04-25] MEDS: DENOSUMAB 60 MG/ML SYRINGE SUBCUT (13:56)
== END 2024-04-25 14:28 | disposition home or self-care (01) ==
LOC: INF 13:44
PROVIDERS: PCP Nurse Practitioner Family; Visit Provider Nurse Practitioner Family
DX: M81.0 Age-related osteoporosis without current pathological fracture (principal)
CPT/HCPCS: 96372; J0897

== ENCOUNTER 2024-05-02 15:00 | Outpatient (RCR) | payer MEDICARE, MEDICAID, SELFPAY ==
--- NOTE | 2024-04-04 14:37 | HMH.PTOPEV ---
PT Outpatient Evaluation Rehab PT Outpatient Evaluation Start: 04/04/24 13:51 Freq: Status: Active Protocol: Document 04/04/24 14:26 MAIRA (Rec: 04/04/24 14:37 MAIRA [id number]) E-signed By Shady Self, PT Outpatient Therapy Subjective History Subjective History The patient is a 78 yof who presents to [facility] outpatient Physical Therapy with reports of low back pain. She reports this has been going on for several months. She reports that she went to [place] with her family last week and the pain actually seems to have subsided somewhat. She reports that the pain is the worst when she is on her feet for longer periods of time. The patient also recently underwent a bone density scan and was found to be osteoporotic in her lumbar spine and hips bilaterally. New diagnosis of cancer in past 12 No months? Chief Complaint Pain Symptom Type Ache Symptoms Relieved By Prescription Meds Symptoms Aggravated By Standing,Bending/Stooping, Physical Activity,Twisting, Walking Prior Functional Limitations None Current Functional Limitations Housework,Sleeping,Squatting, Walking,Stairs,Bending/ Stooping Symptom Description Intermittent Level of pain today (0-10) 2 Pain scale - at its best (0-10) 0 Pain scale - at its worst (0-10) 10 Lumbopelvic Eval Posture Thoracic Spine Posture Standing Position Neutral Lumbar Spine Posture Standing Position Neutral Assistive device Assistive Devices None / NA Gait Observation General Gait Pattern Observation Shuffling Step Palapation tenderness bilateral lumbar spinal tenderness Yes: 2/4 paraspinal tenderness Yes: 2/4 Accessory Movement L2 bilateral L3 bilateral L4 bilateral Range of Motion Lumbar Spine Active Flexion Range of 100% Motion (degrees) Lumbar Spine Active Extension Range of 100% Motion (degrees) Left Lumbar Spine Lateral Flexion Active 100% Range of Motion (degrees) Right Lumbar Spine Lateral Flexion 100% Active Range of Motion (degrees) Manual Muscle Test Bilateral Knee Extension Strength Grade 3+ Fair+ Knee Flexion Strength Grade 3+ Fair+ Hip Flexion Strength Grade 3+ Fair+ Hip Abduction Strength Grade 3 Fair Hip Adduction Strength Grade 3+ Fair+ Hip Extension Strength Grade 3+ Fair+ Special Tests Lumbar Spine Screen Negative Hip Scouring (Quadrant) Test Positive Right Hip Nilson (THAO) Test Positive Right Oswestry Index Section 1 Pain Intensity The pain comes and goes and is severe Section 2 Personal Care (Washing,Dresing) my way of washing or dressing even though it causes some pain Section 3 Lifting Pain prevents me from lifting weights off the floor Section 4 Walking I have some pain when walking but it does not increase with distance Section 5 Sitting I can sit in my favorite chair for as long as I like Section 6 Standing I have some pain on standing, but it does not increase with time Section 7 Sleeping I get pain in bed, but it does not prevent me from sleeping well Section 8 Social Life My social life is normal and gives me no extra pain Section 9 Traveling I get some pain when traveling , but none of my usual forms of travel m Section 10 Changing Degreee of Pain My pain fluctuates, but overall is definitely getting better Score and Risk Level Oswestry Sc 13 Oswestry Risk Level Mild Disability Outpatient Therapy Assessment Impairments Problems/Impairmments Palpation Tenderness,Impaired Strength,Impaired Walking, Impaired Standing,Impaired Household Care,Subjective C/O Pain Prognosis Rehab Potential Fair Comment Pt presents with global weakness to her LE and abdominals, low back pain and a diagnosis of osteoporosis. Skilled PT is indicated for this pt to promote a return to her PLOF and to prevent further impairments. Clinical Impression Consistent with Diagnosis Yes Short Term Goals Number of Weeks 4 Decreased Palpation Tenderness Yes: 1/4 Increase Strength Yes: 4/5 to LEs Improve Gait Pattern without Assistive Yes: Normalized Gait Pattern Device Improve Ability For Household Care Yes: Able to do normal pharmacist critical care with 1/10 pain Improve Oswestry Score Yes: to 8 Decrease Subjective C/O Pain Yes: 6/10 at worst Patient to be Ind w/ HEP Yes Correction Goals Number of Weeks 8 Decreased Palpation Tenderness Yes: 0/4 Increase Strength Yes: 5/5 Increase Ability to Stand Yes: 1 hour with no pain Improve Oswestry Score Yes: to 3 Decrease Subjective C/O Pain Yes: 3/10 at worst Patient to be Ind w/ Advanced HEP Yes Outpatient Therapy Plan of Care Treatment Plan May Include Therapeutic Exercise Including Home Yes Exercise Program Manual Therapy Techniques Yes Neuromuscular Re-education Yes Therapeutic Activities to Return to Yes Previous Functional/Work Level Gait Training Yes ADL/Self Care Education Yes Mechanical Traction Yes Thermal Modalities Yes Electrical Stimulation Yes Massage Yes Eval/Re-Eval Yes Frequency Times per week 2 Duration Number of Weeks 8 Addendums This patient is a candidate for social No or vocational rehab? Patient/Guardian verbally acknowledges Yes understanding of treatment program and consents to further treatment? Patient/Guardian verbally acknowledges Yes understanding of diagnosis, prognosis and goals for treatment? Eval Complexity PT Charges 30219 - Moderate Complexity Shoulder/Elbow Eval Shoulder Objective Measurements Elbow Objective Measurements PHYSICIAN CERTIFICATION: I certify the specified therapy services for Ashley Gonzalez are required, authorized, and reviewed every 30 days.
== END 2024-05-02 23:59 | disposition home or self-care (01) ==
LOC: PT 15:00
PROVIDERS: PCP Nurse Practitioner Family; Visit Provider Nurse Practitioner Family
DX: M54.40 Lumbago with sciatica, unspecified side (principal)
CPT/HCPCS: 97110; 97163; 97530

== ENCOUNTER 2024-10-14 15:41 | Outpatient (CLI) | payer MEDICARE, MEDICAID, SELFPAY ==
--- OUTSIDE RECORDS SUMMARY | 2024-10-14 15:44 | XMS_ITS | Clinical Summary ---
Author Organization Healthcare Address [address] [place] [address] Care Team Providers Care Senior Facilities Manager Name Role Phone Ed Brumfield MD Primary Care Provider [phone] Immunizations Immunization Administration Dates Next Due Influenza, injectable, quadrivalent, preservativ e free 02/09/2015 Family History Medical History Relation Name Comments Coronary artery disease Other 1 Lung cancer Other 2 Relation Name Status Comments Other 1 Other 2 Social History Tobacco Use Types Packs/Day Years Used Date Smoking Tobacco: Never Comments Unknown Sex and Gender Information Value Date Recorded Sex Assigned at Not on file Legal Sex Female 6:56 PM EDT Gender Identity Not on file Sexual Orientation Not on file Last Filed Vital Signs Vital Sign Reading Time Taken Comments Blood Pressure - - Pulse - - Temperature - - Respiratory Rate - - Oxygen Saturation - - Inhaled Oxygen Concentration - - Weight 64.1 kg (141 lb 4.7 oz) 04/26/2015 11:37 AM EST Height 157.5 cm (5' 2 ) 04/26/2015 11:37 AM EST Body Mass Index 25.84 04/26/2015 11:37 AM EST Plan of Treatment Not on file Care Teams Senior Facilities Manager Relationship Specialty Start Date End Date Ed Brumfield MD [address] [place] [address] [address] [place] [address] PCP - General 09/21/20
--- NOTE | 2024-10-14 15:53 | XR_ITS ---
FINAL REPORT CLINICAL HISTORY: left lateral foot pain post fall 1 mo ago FINDINGS: AP, oblique and lateral views of the left foot were obtained. There is no prior exam for comparison. There is no acute fracture or dislocation. There is mild degenerative joint disease of the 1st MTP joint. Soft tissues are unremarkable. No radiopaque foreign body. IMPRESSION: No acute osseous abnormality of the left foot. Reviewed, Interpreted and Dictated by Cecelia Vivar MD Transcribed by Chantel Ruiz Authenticated and [facility]
== END 2024-10-14 23:59 | disposition home or self-care (01) ==
LOC: RAD 15:42
PROVIDERS: PCP Nurse Practitioner Family; Visit Provider Nurse Practitioner Family
DX: M79.672 Pain in left foot (principal); W19.XXXA Unspecified fall, initial encounter
CPT/HCPCS: 73630

== ENCOUNTER 2024-10-31 14:01 | Outpatient (CLI) | payer MEDICARE, MEDICAID, SELFPAY ==
--- OUTSIDE RECORDS SUMMARY | 2024-10-31 14:05 | XMS_ITS | Data Portability ---
Author Organization [facility] SERVANDO Bell [place] CLOSED Address [address] [place] [address] Care Team Providers Care Environmental Services Supervisor Name Role Phone EMILIE HERNANDEZ Primary Care Provider Assessment No assessment recorded. Plan of Treatment Reminders Order Date Submit Date Provider Last Modified By Organization Details Last Modified Time Details Appointments None recorded. Lab TSH, serum or plasma 2023 024 [facility], [address] [place] [address], [address], 4 15:04:44 T4, free, serum 2023 024 [facility], [address] [place] [address], [address], 4 15:04:45 T3, free, serum or plasma 2023 024 [facility], [address] [place] [address], [address], 4 15:04:42 thyroid peroxidase (tpo) Ab, serum 2023 024 [facility], [address] [place] [address], [address], 4 15:46:27 tsi (thyroid-st imulating immunoglobu suzie), serum 2023 024 [facility], [address] [place] [address], [address], 4 20:42:04 culture, bacterial 2021 022 MARLIN [facility], [address] [place], [address], 2 11:00:35 Referral None recorded. Procedures None recorded. Surgeries None recorded. Imaging None recorded. Medication Orders None recorded. Patient TargetsNo targets recorded. Patient Instructions Encounter Date Encounter Id Patient Instructions Last Modified By Organization Details Last Modified Time 01/14/2022 [id number] 1. Endoscopic culture of the left middle meatus/posterior floor of nose obtained- will have patient call for results (treatment will be considered after culture returns). 2. Nasal Endoscopy performed ; clinical photos obtained. Full risks, complications, and benefits of non-operative intervention have been thoroughly discussed. Understanding was expressed, informed consent given, and we will proceed with the discussed treatment plan. There were no questions for me at the end of the office visit. 3. F/u per sinus culture results. benji Not available 01/14/2022 14:40:40 Reason for Referral None Reported. Results Created Date Observation Date Name Description Value Unit Range Abnormal Flag Note LastModifiedBy Organization Detail LastModifiedTime 01/15/2001/14/2022 KALINA SWEET results [facility] e: SINUS Colle cted: 01/14 19:00 Site: Recei mariola : 01/14 19:23 GRAM STAIN FINAL 01/15 11:00 01/15 No organ isms seen. KALINA SWEET FINAL 01/17 12:10 01/16 Evie l skin mahsa isola azalea. Not Available [facility] [address] [place], [address], 01/17/2022 12:10:45 07/30/19 24 07/30/2023 T3 FREE T3 free 2.94 pg/mL 2.00-4 .40 normal Not Available [facility] [address] [place], [address], 07/30/2023 15:04:42 07/30/19 24 07/30/2023 TSH TSH 3.750 u[IU] /mL 0.270- 4.200 normal Not Available [facility] [address] [place], [address], 07/30/2023 15:04:44 07/30/19 24 07/30/2023 T4,FR EE T4,free 1.18 NG/dL 0.93-1 .70 normal Not Available [facility] [address] [place], [address], 07/30/2023 15:04:45 07/30/19 24 07/31/2023 THYRO ID PEROX IDASE AB thyroid peroxidase Ab 3 IU/mL <9 normal Not Available [facility] [address] [place], [address], 07/31/2023 15:46:27 07/30/19 24 08/11/2023 THYRO ID STIMU LATIN G IGS thyroid stimulating igs <89 %_bas feliciano <140 normal Thyro id stimu latin g immun oglob ulins (TSI) can engag e the TSH skin fitter tors resul ting in hyper thyro idism in Grave s' disea se patie nts. TSI level s can be usefu l in monit oring the clini pat outco me of Grave s' disea se as well as asses sing the poten tial for hyper thyro idism from mater nal-f etal trans mau. TSI resul ts great er than or equal to (>=) 140% of the Refer ence Contr ol are consi dered posit nasima. NOTE: A serum TSH level great er than 350 micro -Inte rnati onal Units /mL can inter fere with the TSI bioas say and potjoellen tiaroyer y give false posit nasima resul ts. Patie nts who are pregn ant and are suspe cted of havin g hyper thyro idism shoul d have both TSI and human Chori onic Gonad otrop in (hCG) tests measu red. A serum hCG level great er than 40,62 5 mIU/m L can inter fere with the TSI bioas say and may give false negat nasima resul ts. In these patie nts it is recom oc d that a secon d TSI be obtai malcom when the hCG rob ntrat ion falls below 40,62 5 mIU/m L (usua lly after appro ximat martin 20-we eks gesta tion) . The nellie tical perfo rmanc e malia cteri stics of this assay have been deter mined by [facility] . The modif icati ons have not been clear ed or appro mariola by the FDA. This assay has been valid ated pursu ant to the CLIA regul ation s and is used for clini pat purpo ses. Not Available [facility] [place], [address], 08/11/2023 20:42:04 Result Notes None recorded. Problems No Known Problems Procedures Surgical History Date Name Laterality Status Provider Name and Address Organization Details Recorded Time 01/15/20 22 Endoscopy Nasal; Diagnostic completed AMARI HIGGINS III, MD [facility] [place], [address], [facility] 01/14/2022 14:40:21 oophorectomy completed [facility] 07/28/2023 15:00:53 hysterectomy completed [facility] 07/28/2023 15:01:36 Imaging Results None recorded. Procedure Notes None recorded. Medical Equipment None Reported. Allergies No known drug allergies Medications Name Sig Start Date Stop Date Status Note LastModified by Organization Details LastModified Time diphenoxyla te-atropine 2.5 mg-0.025 mg tablet TAKE 1 TABLET BY MOUTH THREE TIMES DAILY NEEDED FOR DIARRHEA active Not Available Not Available No t Available fexofenadin e 180 mg tablet TAKE 1 TABLET BY MOUTH ONCE DAILY active Not Available Not Available No t Available omeprazole 40 mg capsule,del ayed release Take 1 capsule every day by oral route. active Not Available Not Available No t Available cephalexin 500 mg capsule TAKE 1 CAPSULE BY MOUTH EVERY 8 HOURS FOR 10 DAYS active Not Available Not Available No t Available simvastatin 20 mg tablet TAKE 1 TABLET BY MOUTH ONCE DAILY active Not Available Not Available No t Available ropinirole 0.5 mg tablet TAKE 1 TABLET BY MOUTH AT BEDTIME NIGHTLY FOR RLS FOR 90 DAYS active Not Available Not Available No t Available mometasone 0.1 % topical ointment APPLY OINTMENT TOPICALLY ONCE DAILY FOR 14 DAYS active Not Available Not Available No t Available metoprolol succinate ER 25 mg tablet,exte nded release 24 hr TAKE 1 TABLET BY MOUTH ONCE DAILY active Not Available Not Available No t Available losartan 100 mg tablet TAKE 1 TABLET BY MOUTH ONCE DAILY FOR BLOOD PRESSURE FOR 90 DAYS 07/29 completed Not Available Not Available Not Available Premarin 0.625 mg/gram vaginal cream APPLY 1 GRAM VAGINALLY DAILY active Not Available Not Available No t Available nitrofurant oin monohydrate /macrocryst als 100 mg capsule TAKE 1 CAPSULE BY MOUTH TWICE DAILY WITH A MEAL/FOOD FOR 10 DAYS active Not Available Not Available No t Available aspirin active Not Available Not Avail able Not Available ropinirole 07/29 completed Not Available Not Available Not Available simvastatin 07/29 completed Not Available Not Available Not Available Vitamin D active Not Available Not Crista ilable Not Available losartan active Not Available Not Avai lable Not Available metoprolol succinate 07/29 completed Not Available Not Available Not Available fexofenadin e 07/29 completed Not Available Not Available Not Available levocetiriz ine 5 mg tablet TAKE 1 TABLET BY MOUTH ONCE DAILY IN THE EVENING active Not Available Not Available No t Available levocetiriz ine 07/29 completed Not Available Not Available Not Available omega 3 35 mg-dha 25 mg-epa 5 mg-fish oil 113.5 mg chewable tablet Take by oral route. active Not Available Not Available No t Available Vitals Date Recorded Body weight Body mass index (BMI) Body height Heart rate Systolic blood pressure Diastolic blood pressure Provider Name and Address Organization Details Last Updated DateTime 4 55261.2 6 g 27.3 kg/m2 157.48 cm 56 /min 160 mm[Hg] 76 mm[Hg] Adriana warren [facility] 4 13:10:09 Date Recorded Body weight Body mass index (BMI) Body height Body temperature Oxygen saturation Oxygen saturation in Arterial blood by Pulse oximetry Heart rate Systolic blood pressure Diastolic blood pressure Provider Name and Address Organization Details Last Updated DateTime 2 45069.7 1 g 26.2 kg/m2 157.48 cm 98 [degF] 99 % 99 % 70 /min 170 mm[Hg] 77 mm[Hg] Indiana Larsen [facility] 13:44:03 Social History Question Answer Notes LastModified by Organizat ion Details LastModified Time Tobacco Smoking Status Never Smoker [place] Larsen [facility] 01/14/2022 13:40:58 What Was The Date Of Your Most Recent Tobacco Screening? 01/14/2022 Information not available 01/14/2022 Has Tobacco Cessation Counseling Been Provided? No Information not available 01/14/2022 Sex: Unknown Functional Status Question Answer Note LastModified by Organizat ion Details LastModified Time Do you use any illicit or recreational drugs? No Information not available 01/14/2022 Do you or have you ever used any other forms of tobacco or nicotine? No Information not available 01/14/2022 What is your level of alcohol consumption? None Information not available 01/14/2022 Are you currently employed? No retired [employer] Information not available 07/28/2023 Mental Status None recorded. Family History Relationship Description Onset Age of this Age Resolved Age Notes LastModified by Organization Details LastModified Time Mother Malignant tumor of pharynx Not available 2021 13:39:50 Mother Asthma Not available 10/2021 13:40:04 Father Heart disease Not available 2021 13:40:14 Sister Heart disease Not available 2021 13:40:28 Sister Kidney disease Not available 2021 13:40:43 Brother Heart disease Not available 2021 13:40:33 Notes:family hx of cancer, c oronary artery disease, heart attack, hypertension Medical History No medical history recorded. Gynecological HistoryNo gynecological history recorded. Obstetrics History GPAL:G 0 P 0 0 0 0 Past Encounters Encounter ID Performer Location Encounter Start Date Encounter Closed Date Diagnosis/Indication Diagnosis SNOMED-CT Code Diagnosis ICD10 Code Diagnosis Note [id number] AMARI HIGGINS III, MD [place] [facility] CLOSED [address] [place] [address] 01/14/2022 13:29:38 01/14/2022 15:48:01 Chronic sinusitis 79363747 J32.9 Pain in face 75510403 R5 1.9 Hypertroph y of nasal turbinates 86525344 J34.3 Chronic ec zema of external auditory canal 932445534 H60.8X9 Posterior rhinorrhea 758 65027 R09.82 Clearing t hroat - hawking 718913572 R05.9 Acute sinusitis 60326317 J01.90 Nasopharyngitis 54191190 J00 [id number] KYLIE STARR APRN ENDOCR[facility] [address] [place] [address] 07/30/2023 12:02:04 07/30/2023 13:44:28 Thyroid function tests abnormal 165076570 R94.6 Referral labs from July 14, 2023 show:TSH 0.17T4 1.14T3 2.3BUN 14Creatini ne 0.80GFR 69Per prior records, patient with low TSH in 2022 of 0.14, T3 and T4 were normal at this time. Patient clinically euthyroid and states she has never experience d symptoms associated with hyperthyro id or hypothyroi dism.No nodularity felt on exam.Patie nt denies any personal or family history of thyroid dysfunctio n.Patient denies taking any medication that affects thyroid function. Recommenda tion:We will obtain thyroid panel as well as TSI and TPO today. Will call patient with results to discuss next actions needed and plan of care. Patient states understand ing of the above plan of care and with no questions or concerns at this time. Essential hypertension 23863280 I10 Goal BP less than 140/90BP in office today 160/76Cont inue current metoprolol and losartan daily as prescribed by PCP.Contin ue BP monitoring at home. Hyperlipidemia 78693545 E78.5 Lipid Panel on April 2023 as follows:Ch olesterol 210 Triglyceri alejandro 122 HDL 66 LDL 110 Continue current simvastati n therapy prescribed by PCP. Health Concerns Section Related Observation LastModified by Organization Detai ls LastModified Time None Recorded Concern Status LastModified by Organization Details LastModified Time None Recorded Advance Directives Directive None Recorded Payers Insurance Date Sequence Insurance Name Policy Number Policy Douglas Covered Member ID Douglas Member ID Guarantor Name 08/14/2023 2 MEDICAID-[facility] HEALTH CHOICES - FFS/TRADITIONA L Ashley Gonzalez [id number] Ashley Gonzalez 07/23/2023 2 MEDICAID-[facility] HEALTH CHOICES - FFS/TRADITIONA L Ashley Gonzalez [id number] Ashley Gonzalez 08/13/2023 1 [place] [employer] [facility] MEDIBLUE ACCESS (MEDICARE REPLACEMENT REGIONAL PPO) [id number] Ashley Gonzalez [id number] Ashley Gonzalez Notes Date Note Type Note Provider Name and Address Organization Details Recorded Time 01/14/2022 text/html Ashley comes in today for consultation at the request of Emilie Hernandez APRN for a sinus evaluation. She did have sinus surgery within the past 20 years and her right side seems to do well, but not the left. She tends to deal with left sided facial pain on a daily basis. She was most recently evaluated by Dr. Wade Chaudhari and did have imaging obtained and placed her on Alcira. She reports a normal sense of smell. She has dental extractions completed on the left maxilla and continue to have pain. She does notice post nasal drainage almost every morning which is discolored. She will get a yellowish crust along with some blood at times. Ashley tends to cough frequently as well. She has not been treated with an oral antibiotic recently, and has tried using saline rinse in the past but does not care for saline rinse and/or medicated nasal sprays. She does use a CPAP machine nightly for SASKIA. AMARI HIGGINS III, MD [address] [place] [address], [address], [facility] 01/14/2022 14:40:59 07/30/2023 text/html Ms. Gonzalez is a 78-year-old female presents office today after referral for abnormal thyroid labs. Past medical history consist of hypertension, hyperlipidemia, and CVA. Patient appears clinically euthyroid at today's visit and she states that she has never experienced any symptoms associated with hyperthyroid or hypothyroid. Patient denies any personal or family history of thyroid dysfunction. Patient denies taking any medications that affect thyroid function at this time. KYLIE STARR, WATER AND FIRE TECHNICIAN [address] [place], [address], [facility] 07/30/2023 13:42:20 OBGyn Episode No OBEpisode recorded.
--- OUTSIDE RECORDS SUMMARY | 2024-10-31 14:05 | XMS_ITS | Clinical Summary ---
Author Organization Healthcare Address [address] [place] [address] Care Team Providers Care Pipe Fitter [employer] Name Role Phone Ed Brumfield MD Primary Care Provider [phone] Immunizations Immunization Administration Dates Next Due Influenza, [...] of Treatment Not on file Care Teams Pipe Fitter [employer] Relationship Specialty Start Date End Date Ed Brumfield MD [address] [place] [address] [address] [place] [address] PCP - General 09/21/20
[2024-10-31 14:32] VITALS: BP 157/81; PULSE 75; RESP 14; TEMP 36.4; O2SAT 97
[2024-10-31] MEDS: DENOSUMAB 60 MG/ML SYRINGE SUBCUT (14:32)
== END 2024-10-31 14:57 | disposition home or self-care (01) ==
LOC: INF 14:02
PROVIDERS: PCP Nurse Practitioner Family; Visit Provider Nurse Practitioner Family
DX: M81.0 Age-related osteoporosis without current pathological fracture (principal)
CPT/HCPCS: 96372; J0897

== ENCOUNTER 2025-04-11 12:00 | Outpatient (CLI) | payer MEDICARE, MEDICAID, SELFPAY ==
[2025-04-11 14:29] LABS: Microscopic, Urine URINE MICROSCOPIC (MICROSCOPIC)
[2025-04-11 14:58] LABS: Hematocrit 38.8 % (37.0-47.0); Hemoglobin 12.4 g/dL (12.2-16.2); Immature Granulocytes % 0.4 %; Mean Corpuscular HGB Conc 32.0 g/dL (31.8-35.4); Mean Corpuscular Hemoglobin 30.9 pg (27.0-31.2); Mean Corpuscular Volume 96.8 fl (81-99); Nucleated Red Blood Cells % 0 %; Platelet Count 266 K/mm3 (142-424); Red Blood Count 4.01 M/mm3 (4.20-5.40); Red Cell Distribution Width-SD 45.0 fL; White Blood Count 11.8 K/mm3 (4.8-10.8)
[2025-04-11 15:25] LABS: Bilirubin,Urine Negative (Negative); Glucose,Urine (UA) TRACE (Negative); Ketones,Urine Negative (Negative); Leukocyte Esterase,Urine 2+ (Negative); PH,Urine 5.0 (5.0-8.5); Protein,Urine 1+ (Negative); Specific Gravity, Urine <= 1.005 (1.005-1.030); Urobilinogen,Urine 4.0 EU/dl (0.2)
[2025-04-11 15:27] LABS: Color,Urine ORANGE (Yellow)
[2025-04-11 15:33] LABS: Alanine Aminotransferase 17 U/L (12-78); Albumin Level 4.6 g/dl (3.5-5.0); Albumin/Globulin Ratio 1.5 (1.1-1.8); Alkaline Phosphatase 87 U/L (38-126); Anion Gap 10.2 mEq/L (5-15); Aspartate Amino Transferase 27 U/L (14-36); Bilirubin,Total 0.6 mg/dl (0.2-1.3); Blood Urea Nitrogen 13 mg/dl (7-17); Calcium 9.6 mg/dl (8.4-10.2); Carbon Dioxide 25 mmol/L (22.0-30.0); Chloride 105 mmol/L (98-107); Cholesterol 159 mg/dl (140-200); Creatinine,Serum 0.70 mg/dl (0.52-1.04); Estimated Glomerular Filt Rate 81 ml/min (>60); GFR (African American) 97 ML/MIN (>60); Globulin 3.0 g/dL (1.3-3.2); Glucose 101 mg/dl (74-100); HDL Cholesterol 54 mg/dl (40-60); Magnesium 2.1 mg/dl (1.6-2.3); Potassium 4.2 mmoL/L (3.5-5.1); Sodium 136 mmol/L (136-145); Total Protein,Serum 7.6 g/dl (6.3-8.2); Triglycerides 126 mg/dl (30-150)
[2025-04-11 15:51] LABS: 25-OH Vitamin D, Total 36.9 ng/mL (30-100)
[2025-04-11 15:55] LABS: Bacteria,Urine Trace /lpf
[2025-04-11 16:04] LABS: Thyroid Stimulating Hormone < 0.02 uIU/mL (0.465-4.68)
[2025-04-11 16:23] LABS: Vitamin B12 972 pg/mL (239-931)
--- OUTSIDE RECORDS SUMMARY | 2025-04-12 10:17 | XMS_ITS | Clinical Summary ---
Author Organization Healthcare Address [address] [place] [address] Care Team Providers Care Material Preparation Worker Name Role Phone Ed Brumfield MD Primary Care Provider [phone] Immunizations Immunization Administration Dates Next Due Influenza, [...] of Treatment Not on file Care Teams Material Preparation Worker Relationship Specialty Start Date End Date Ed Brumfield MD [address] [place] [address] [address] [place] [address] PCP - General 09/21/20
--- OUTSIDE RECORDS SUMMARY | 2025-04-12 10:17 | XMS_ITS | Data Portability ---
Author Organization [facility] SERVANDO Bell [place] CLOSED Address [address] [facility] [address] [place] [address] Care Team Providers Care Poultry Tender Name Role Phone EMILIE HERNANDEZ Primary Care Provider [phone] Assessment No assessment recorded. Plan of Treatment Reminders Order Date Submit Date Provider Last Modified By Organization Details Last Modified Time Details Appointments None recorded. Lab TSH, serum or plasma [address] [facility], [address] [place] [address], [address], 4 15:04:44 T4, free, serum [address] [facility], [address] [place] [address], [address], 4 15:04:45 T3, free, serum or plasma [address] [facility], [address] [place] [address], [address], 4 15:04:42 thyroid peroxidase (tpo) Ab, serum [address] [facility], [address] [place] [address], [address], 4 15:46:27 tsi (thyroid-st imulating immunoglobu suzie), serum [address] [facility], [address] [place] [address], [address], 4 20:42:04 culture, bacterial 2021 022 [place] [facility], [address] [place], [address], 2 11:00:35 Referral None recorded. Procedures None recorded. Surgeries None recorded. Imaging None recorded. Medication Orders None recorded. Patient TargetsNo targets recorded. Patient Instructions Encounter Date Encounter Id Patient Instructions Last Modified By Organization Details Last Modified Time 01/14/2022 [id number] 1. Endoscopic culture of the left middle [...] Organization Detail LastModifiedTime 01/15/2001/14/2022 KALINA SWEET results [facility] e: SINUS Colle cted: 01/14 19:00 Site: Recei mariola : 01/14 19:23 GRAM STAIN FINAL 01/15 11:00 01/15 No organ isms seen. KALINA SWEET FINAL 01/17 12:10 01/16 Evie l skin mahsa isola azalea. Not Available [facility] [address] [place], [address], 01/17/2022 12:10:45 07/30/19 24 07/30/2023 T3 FREE T3 free 2.94 pg/mL 2.00-4 .40 normal Not Available [facility] [address] [place], [address], 07/30/2023 15:04:42 07/30/19 24 07/30/2023 TSH TSH 3.750 u[IU] /mL 0.270- 4.200 normal Not Available [facility] [address] [place], [address], 07/30/2023 15:04:44 07/30/19 24 07/30/2023 T4,FR EE T4,free 1.18 NG/dL 0.93-1 .70 normal Not Available [facility] [address] [place], [address], 07/30/2023 15:04:45 07/30/19 24 07/31/2023 THYRO ID PEROX IDASE AB thyroid peroxidase Ab 3 IU/mL <9 normal Not Available [facility] [address] [place], [address], 07/31/2023 15:46:27 07/30/19 24 08/11/2023 THYRO ID STIMU LATIN G IGS thyroid stimulating igs <89 %_bas feliciano <140 normal Thyro id stimu latin g immun oglob ulins (TSI) can engag e the TSH secretary receptionist tors resul ting in hyper thyro idism [...] for clini pat purpo ses. Not Available [facility] [place], [address], 08/11/2023 20:42:04 Result Notes None recorded. Problems No Known Problems Procedures Surgical History Date Name Laterality Status Provider Name and Address Organization Details Recorded Time 01/15/20 22 Endoscopy Nasal; Diagnostic completed AMARI HIGGINS III, MD [facility] [place], [address], [facility] 01/14/2022 14:40:21 oophorectomy completed [facility] 07/28/2023 15:00:53 hysterectomy completed [facility] 07/28/2023 15:01:36 Imaging Results None [...] index (BMI) Body height Heart rate Systolic And Diastolic Provider Name and Address Organization Details Last Updated DateTime 07/30/2023 77714.26 g 27.3 kg/m2 157.48 cm 56 /min 160/76 mm[Hg] Adriana Morales [facility] 4 13:10:09 Date Recorded Body weight Body mass index (BMI) Body height Body temperature Oxygen saturation Heart rate Systolic And Diastolic Provider Name and Address Organization Details Last Updated DateTime 2 53643.7 1 g 26.2 kg/m2 157.48 cm 98 [degF] 99 % 70 /min 170/77 mm[Hg] Indiana Larsen [facility] 13:44:03 Social History Question Answer Notes LastModified by Organizat ion Details LastModified Time Tobacco Smoking Status [facility]oker [facility] 01/14/2022 13:40:58 What Was The Date [...] 01/14/2022 Are you currently employed? No retired [employer] Information not available 07/28/2023 Mental Status None recorded. Family History Relationship Description Onset Age of this Age Resolved Age Notes LastModified by Organization Details LastModified Time Mother Malignant neoplasm of pharynx Not available 2021 13:39:50 Mother [...] Diagnosis SNOMED-CT Code Diagnosis ICD10 Code Diagnosis IMO Codes Diagnosis Note [id number] MD [facility] CLOSED [address] [place] [address] 01/14/2022 13:29:38 01/14/2022 15:48:01 Chronic sinusitis 55523728 J32.9 Pain in face 58603754 R5 1.9 Hypertroph y of nasal turbinates 86611019 J34.3 Chronic ec zema of external auditory canal 686276094 H60.8X9 Posterior rhinorrhea 758 91183 R09.82 Clearing t hroat - hawking 688178208 R05.9 Acute sinusitis 34872273 J01.90 Nasopharyngitis 59609163 J00 [id number] KYLIE STARR APRN END[facility]CR[facility] [address] [place] [address] 07/30/2023 12:02:04 07/30/2023 13:44:28 Thyroid function tests abnormal 091730249 R94.6 Referral labs from July 14, 2023 [...] or concerns at this time. Essential hypertension 38925238 I10 Goal BP less than 140/90BP in office today 160/76Cont inue current metoprolol and losartan daily as prescribed by PCP.Contin ue BP monitoring at home. Hyperlipidemia 18317581 E78.5 Lipid Panel on April 2023 as [...] Douglas Member ID Guarantor Name 08/14/2023 2 MEDICAID-[facility] HEALTH CHOICES - FFS/TRADITIONA L Ashley Gonzalez [id number] Ashley Gonzalez 07/23/2023 2 MEDICAID-[facility] HEALTH CHOICES - FFS/TRADITIONA L Ashley Gonzalez [id number] Ashley Gonzalez 08/13/2023 1 [place] [facility] ACCESS (MEDICARE REPLACEMENT REGIONAL O) [id number] Ashley Gonzalez [id number] Ashley Gonzalez Notes Date Note Type Note Provider Name and Address Organization Details Recorded Time 01/14/2022 text/html Ashley comes in today for consultation at the request of Emliie Hernandez APRN for a sinus evaluation. She [...] nightly for SASKIA. AMARI HIGGINS III, MD [address] [place], [address], [facility] 01/14/2022 14:40:59 07/30/2023 text/html Ms. [...] affect thyroid function at this time. KYLIE STARR APRN [address] [place], [address], [facility] 07/30/2023 13:42:20 OBGyn Episode No OBEpisode recorded.
== END 2025-04-11 23:59 ==
LOC: LAB.DROPOF 04-12 10:15
PROVIDERS: PCP Nurse Practitioner Family; Visit Provider Nurse Practitioner Family
DX: M81.0 Age-related osteoporosis without current pathological fracture (principal); R30.0 Dysuria; E78.5 Hyperlipidemia, unspecified; E05.90 Thyrotoxicosis, unspecified without thyrotoxic crisis or storm; I10 Essential (primary) hypertension; K21.9 Gastro-esophageal reflux disease without esophagitis
CPT/HCPCS: 80053; 80061; 81001; 82306; 82607; 83735; 84443; 85025; 87086; 87088

== ENCOUNTER 2025-05-02 14:40 | Outpatient (CLI) | payer MEDICARE, MEDICAID, SELFPAY ==
--- OUTSIDE RECORDS SUMMARY | 2025-05-02 14:43 | XMS_ITS | Clinical Summary ---
Author Organization Healthcare Address [address] [place] [address] Care Team Providers Care Department Mgr Name Role Phone Ed Brumfield MD Primary Care Provider [phone] Immunizations Immunization Administration Dates Next Due Influenza, [...] of Treatment Not on file Care Teams Department Mgr Relationship Specialty Start Date End Date Ed Brumfield MD [address] [place] [address] [address] [place] [address] PCP - General 09/21/20
--- OUTSIDE RECORDS SUMMARY | 2025-05-02 14:43 | XMS_ITS | Data Portability ---
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 Plan of Treatment Reminders Order Date Submit Date Provider Last Modified By Organization Details Last Modified Time Details Appointments None recorded. Lab TSH, serum or plasma 2023 024 [facility], [address] [place] [address], [id number], 4 15:04:44 T4, free, serum 2023 024 [facility], [address] [place] [address], [id number], 4 15:04:45 T3, free, serum or plasma 2023 024 [facility], [address] [place] [address], [phone], 4 15:04:42 thyroid peroxidase (tpo) Ab, serum 2023 024 [facility], [address] [place] [address], [id number], 4 15:46:27 tsi (thyroid-st imulating immunoglobu suzie), serum 2023 024 [facility], [address] [place] [address], [id number], 4 20:42:04 culture, bacterial 2021 022 [facility], [address] [place], [address], 2 11:00:35 Referral None recorded. Procedures None recorded. Surgeries None recorded. Imaging None recorded. Medication Orders None recorded. Patient TargetsNo targets recorded. Patient Instructions Encounter Date Encounter Id Patient Instructions Last Modified By Organization Details Last Modified Time 01/14/2022 [id number] 1. Endoscopic culture of the left middle [...] Organization Detail LastModifiedTime 01/15/2001/14/2022 KALINA SWEET results [facility] e: SINUS Colle cted: 01/14 19:00 Site: Recei mariola : 01/14 19:23 GRAM STAIN FINAL 01/15 11:00 01/15 No organ isms seen. KALINA SWEET FINAL 01/17 12:10 01/16 Evie l skin mahsa isola azalea. Not Available [facility] [address] [place], [address], 01/17/2022 12:10:45 07/30/19 24 07/30/2023 T3 FREE T3 free 2.94 pg/mL 2.00-4 .40 normal Not Available [facility] [address] [place], [address], 07/30/2023 15:04:42 07/30/19 24 07/30/2023 TSH TSH 3.750 u[IU] /mL 0.270- 4.200 normal Not Available [facility] [address] [place], [address], 07/30/2023 15:04:44 07/30/19 24 07/30/2023 T4,FR EE T4,free 1.18 NG/dL 0.93-1 .70 normal Not Available [facility] [address] [place], [address], 07/30/2023 15:04:45 07/30/19 24 07/31/2023 THYRO ID PEROX IDASE AB thyroid peroxidase Ab 3 IU/mL <9 normal Not Available [facility] [address] [place], [address], 07/31/2023 15:46:27 07/30/19 24 08/11/2023 THYRO ID STIMU LATIN G IGS thyroid stimulating igs <89 %_bas feliciano <140 normal Thyro id stimu latin g immun oglob ulins (TSI) can engag e the TSH reception manager tors resul ting in hyper thyro idism [...] for clini pat purpo ses. Not Available [facility] [place], [address], 08/11/2023 20:42:04 Result Notes None recorded. Problems No Known Problems Procedures Surgical History Date Name Laterality Status Provider Name and Address Organization Details Recorded Time 01/15/20 22 Endoscopy Nasal; Diagnostic completed AMARI HIGGINS III, MD [facility] [place], [address], [facility] 01/14/2022 14:40:21 oophorectomy completed [facility] 07/28/2023 15:00:53 hysterectomy completed [facility] 07/28/2023 15:01:36 Imaging Results None recorded. [...] Address Organization Details Last Updated DateTime 07/30/2023 73365.26 g 27.3 kg/m2 157.48 cm 56 /min 160/76 mm[Hg] Adriana Morales [facility] 4 13:10:09 Date Recorded Body weight Body mass index (BMI) Body height Body temperature Oxygen saturation Heart rate Systolic And Diastolic Provider Name and Address Organization Details Last Updated DateTime 2 14303.7 1 g 26.2 kg/m2 157.48 cm 98 [degF] 99 % 70 /min 170/77 mm[Hg] [place] Larsen [facility] 13:44:03 Social History Question Answer Notes LastModified by Organizat ion Details LastModified Time Tobacco Smoking Status Never Smoker [facility] 01/14/2022 13:40:58 What Was The Date Of [...] 01/14/2022 Are you currently employed? No retired [email or web address] Information not available 07/28/2023 Mental Status None [...] ICD10 Code Diagnosis IMO Codes Diagnosis Note [id number] MD JONG RAMOS III [employer] [facility] [address] [place] [address] 01/14/2022 13:29:38 01/14/2022 15:48:01 Chronic sinusitis 00733229 J32.9 Pain in face 92565631 R5 1.9 Hypertroph y of nasal turbinates 37725455 J34.3 Chronic ec zema of external auditory canal 966008723 H60.8X9 Posterior rhinorrhea 758 24249 R09.82 Clearing t hroat - hawking 414550820 R05.9 Acute sinusitis 79428097 J01.90 Nasopharyngitis 55814001 J00 [id number] KYLIE STARR APRN [facility] [address] [place] [address] 07/30/2023 12:02:04 07/30/2023 13:44:28 Thyroid function tests abnormal 653987400 R94.6 Referral labs from July 14, 2023 [...] or concerns at this time. Essential hypertension 86041012 I10 Goal BP less than 140/90BP in office today 160/76Cont inue current metoprolol and losartan daily as prescribed by PCP.Contin ue BP monitoring at home. Hyperlipidemia 85165501 E78.5 Lipid Panel on April 2023 as [...] Douglas Member ID Guarantor Name 08/14/2023 2 MEDICAID-[facility] - FFS/TRADITIONA L Ashley Gonzalez [id number] Ashley Gonzalez 07/23/2023 2 MEDICAID-[facility] - FFS/TRADITIONA L Ashley Gonzalez [id number] Ashley Gonzalez 08/13/2023 1 [place] [facility] ACCESS (MEDICARE REPLACEMENT REGIONAL O) [id number] Ashley Gonzalez [id number] Ashley Gonzalez Notes Date Note Type Note [...] for SASKIA. AMARI HIGGINS III, MD [address] [place], [address], [facility] 01/14/2022 14:40:59 07/30/2023 text/html Ms. Gonzalez is [...] at this time. KYLIE STARR APRN [address] [place], [address], [facility] 07/30/2023 13:42:20 OBGyn Episode No OBEpisode recorded.
[2025-05-02] MEDS: DENOSUMAB 60 MG/ML SYRINGE SUBCUT (14:45)
[2025-05-02 14:50] VITALS: BP 136/89; PULSE 72; RESP 21; O2SAT 99
== END 2025-05-02 23:59 | disposition home or self-care (01) ==
LOC: INF 14:42
PROVIDERS: PCP Nurse Practitioner Family; Visit Provider Nurse Practitioner Family
DX: M81.0 Age-related osteoporosis without current pathological fracture (principal)
CPT/HCPCS: 96372; J0897